=== PATIENT | male | born 1935 | race Caucasian/White ===

== ENCOUNTER → 2017-06-20 08:01 | Outpatient (CLI) | payer MEDICARE ==
[~2017-06-20] VITALS: Ht 188 cm; Wt 107.3 kg
--- NOTE | ~2017-06-20 | OP ---
PATIENT NAME: PHILIP DURHAM MEDICAL RECORD: [id number] :33 LOCATION:D.CAT ADMISSION DATE: SURGEON: FLO SAVAGE MD DATE OF OPERATION: 06/20/2017 PROCEDURES: 1. PTCA stent RCA. 2. Intravascular ultrasound. 3. Left heart catheterization. 4. Left ventriculogram. 5. Selective coronary angiography. INDICATION: Angina and coronary artery disease. PROCEDURE IN DETAIL: After informed consent was obtained and after a detailed description of risks, benefits as well as alternative therapies, the patient elected to proceed with angiogram and angioplasty. The right femoral area was prepped and draped in normal sterile fashion. Right femoral artery was cannulated via modified Seldinger technique with placement of 6-Thai sheath. All catheters exchanged through this sheath. FINDINGS: The left ventriculogram was performed in standard 30-degree KRISHNAMURTHY view, reveals good cardiac wall motion throughout all segments. Overall ejection fraction estimated at 50%. SELECTIVE CORONARY ANGIOGRAPHY: 1. Left main is with no significant angiographic disease. 2. Left anterior descending has moderate irregularities, but no flow-limiting stenosis. 3. The left circumflex has moderate irregularities, but no flow-limiting stenosis. 4. The right coronary artery has previously placed stent in the mid vessel with 70% in-stent restenosis. There is a second lesion that is 70% stenosed in the mid distal vessel. PTCA STENT OF THE RCA: The second lesion was addressed with a 3.5 x 15 mm Integrity stent. The stent balloon was used for the in-stent restenosis of the proximal lesion. Result was 0% residual stenosis. OVERALL IMPRESSION: Successful SHIELD RUNNER stent of the right coronary artery going from 70% initial stenosis times 2 to 0% residual stenosis. TRANSINT:[id number] Voice Confirmation ID: [id number] DOCUMENT ID: [id number] FLO SAVAGE MD at 1849 CC: [id number] DICTATION DATE: 06/20/17 1102 INSPECTOR BULLET SLUGS: 06/20/17 1322 REG [facility] [address] [place] [address]
--- NOTE | ~2017-06-20 | OP ---
PATIENT NAME: PHILIP DURHAM MEDICAL RECORD: [id number] :33 LOCATION:D.CAT ADMISSION DATE: SURGEON: FLO SAVAGE MD DATE OF OPERATION: 06/20/2017 PROCEDURE: Four-vessel carotid and vertebral angiography. 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 PROCEDURE IN DETAIL: After informed consent was obtained and after a detailed description of risks, benefits as well as alternative therapies, the patient elected to proceed with angiogram. The right femoral area had a preexisting sheath from coronary intervention. All catheters exchanged through this sheath. FINDINGS: There was subselection of each subclavian as well as the left carotid. LEFT SIDE: The common internal and external carotids have mild plaquing, no flow-limiting stenosis. Vertebral arteries devoid of disease. RIGHT SYSTEM: The common internal and external carotids have mild plaquing, no significant flow-limiting stenosis. Vertebral arteries devoid of disease. The right subclavian is very tortuous, calcified, but it does not appear to be flow limiting and does not appear to have any trauma from the attempted radial approach. OVERALL IMPRESSION: Minimal carotid vascular disease is present. No flow-limiting stenosis. TRANSINT:[id number] Voice Confirmation ID: [id number] DOCUMENT ID: [id number] FLO SAVAGE MD at 1849 CC: [id number] DICTATION DATE: 06/20/17 1102 ACCOUNT INSTALLATION SPECIALIST: 06/20/17 1322 REG [facility] [address] [place] [id number]
--- NOTE | ~2017-06-20 | HEMODYNAMI ---
PATIENT:PHILIP DURHAM MEDICAL RECORD: [id number] : 31 LOCATION:DMONO ADMISSION DATE: 06/20/17 Generatedon:06/20/201710:53 Patient name: PHILIP DURHAM Patient #: [id number] SSN: D OB: 1935 Date of study: 06/20/2017 Page: Of Hemodynamic Procedure Report Patient Data Patient Demographics Procedure consent was obtained First Name: PHILIP Gender: Male Last Name: HERMINIO : 1935 Middle Initial: W Age: 81 year(s) Patient #: [id number] Race: Unknown Additional ID: [id number] Contact details Address: [address] [place] [address] State: [place] City: [facility] Zip code: [address] Past Medical History Allergies: No known allergies Admission Admission Data Admission Date: 06/20/2017 Admission Time: 8:01 Admit Source: Other Lab Results Lab Result Date: 06/20/2017 Lab Result Time: 9:00 Biochemistry Name Units Result Min Max BUN mg/dl 27 --(----)-* 7 18 Creatinine mg/dl 1.3 --(---*)-- 0.6 1.3 CBC Name Units Result Min Max Hematocrit % 32.1 *-(----)-- 42 54 Hemoglobin g/dl 10.7 *-(----)-- 13.5 17.5 Procedure Procedure Types Cath Procedure Diagnostic Procedure LHC LH w/Coronaries FFR/IVUS Intra-Coronary IVUS Initial Sedation Charges Moderate Sedation up to 15 minutes PCI Procedure Coronary Stent Coronary Stent Initial Procedure Description Procedure Date Procedure Date: 06/20/2017 Procedure Start Time: 10:29 Procedure End Time: 10:52 Procedure Staff Name Function Ramos Machuca MD Performing Physician Eloy Che RT Monitor Janneth Cerrato RT Scrub Luke Win RN Nurse Procedure Data Cath Procedure Fluoroscopy Diagnostic fluoroscopy Total fluoroscopy Time: 5 time: 5 min min Diagnostic fluoroscopy Total fluoroscopy dose: dose: 1059 mGy 1059 mGy Contrast Material Contrast Material Type Amount (ml) Isovue 370 107 Entry Location Entry Primary Successful Side Size Upsize Upsize Entry Closure Wei ccessful Closure Location (Fr) 1 (Fr) 2 (Fr) Remarks Device Remarks Radial Right 6 Fr Mechanical artery Short Compression Femoral Right 6 Fr Exoseal artery Short Estimated blood loss: 10 ml Diagnostic catheters Device Type Used For End Catheter Placement DIAGNOSTIC Distant 110cm 5 Procedure Fr catheter ([id number]) MULTIPACK 3DRC 5Fr Procedure catheter MULTIPACK JL 4.0 5Fr Procedure catheter MULTIPACK Pigtail 5 Fr Procedure catheter Procedure Complications No complications Procedure Medications Medication Administration Route Dosage 0.9% NaCl I.V. 100 ml/hr Oxygen etCO2 Nasal cannula 2 l/min Heparin Flush Bag added to field 2 bags (1000units/500ml NS) Lidocaine 2% added to field 20 Versed I.V. 1 mg Fentanyl I.V. 50 mcg Radial Cocktail added to field 1 syringe (Verapomil 2mg/Nitro 400mcg/Heparin 1500units) Radial Cocktail I.A. 1 syringe (Verapomil 2mg/Nitro 400mcg/Heparin 1500units) Heparin Bolus I.V. 4000 units Integrilin (Bolus I.V. 9.5 ml 2mg/ml) Integrilin (Bolus wasted 0.5 ml 2mg/ml) Fentanyl I.V. 50 mcg Plavix P.O. 600 mg Hemodynamics Rest HGB: 10.7 (g/dl) Heart Rate: 56 (bpm) Pressure Samples Time Site Value (mmHg) Purpose Heart Use Rate(bpm) 10:36 LV 89/29,35 Snapshot 75 Snapshots Pre Cath Intra NCS Post Cath Vital Signs Time Heart Resp SPO2 etCO2 NIBP (mmHg) Rhythm Pain Sedation Rate (ipm) (%) (mmHg) Status Level (bpm) 10:23:06 61 17 100 33.7 130/71(104) A-Fib 0 (11) 10(A) , No pain 10:27:49 61 14 100 10.4 123/70(96) A-Fib 0 (11) 10(A) , No pain 10:32:21 64 14 98 20.2 101/64(88) A-Fib 0 (11) 10(A) , No pain 10:36:56 67 13 97 36.7 107/64(80) A-Fib 0 (11) 10(A) , No pain 10:41:32 61 13 98 27.7 117/66(93) A-Fib 0 (11) 10(A) , No pain 10:46:11 63 15 98 32.2 127/72(102) A-Fib 0 (11) 10(A) , No pain 10:50:53 61 11 98 0 115/66(96) A-Fib 0 (11) 10(A) , No pain Medications Time Medication Route Dose Verified Delivered Reason Not es Effectiveness by by 10:21:19 0.9% NaCl I.V. 100 Luke Luke Per physician ml/hr Audelia Win RN RN 10:21:28 Oxygen etCO2 2 l/min Luke Luke Per physician Nasal Audelia Win cannula RN RN 10:21:39 Heparin Flush added 2 bags Luke Luke used for Bag to Audelia Win procedure (1000units/500ml field RN RN NS) 10:21:52 Lidocaine 2% added 20ml Luke Luke for local to vial Lorigan Audelia anesthetic field RN RN 10:22:02 Versed I.V. 1 mg Luke Luke for sedation Audelia Win RN RN 10:22:11 Fentanyl I.V. 50 mcg Luke Luke for sedation Audelia Win RN RN 10:22:25 Radial Cocktail added 1 Luke Luke used for (Verapomil to syringe Lorfederico Win procedure 2mg/Nitro field RN RN 400mcg/Heparin 1500units) 10:29:06 Radial Cocktail I.A. 1 Luke Ramos for (Verapomil syringe Audelia Machuca MD vasodilation 2mg/Nitro RN 400mcg/Heparin 1500units) 10:37:55 Heparin Bolus I.V. 4000 Luke Luke for units Audelia Win anticoagulation RN RN 10:44:22 Integrilin I.V. 9.5 ml Luke Luke for (Bolus 2mg/ml) Audelia Win antiplatelet RN RN therapy 10:44:31 Integrilin wasted 0.5 ml Luke Luke for (Bolus 2mg/ml) Audelia Win antiplatelet RN RN therapy 10:47:47 Fentanyl I.V. 50 mcg Luke Luke for sedation Audelia Win RN RN 10:48:05 Plavix P.O. 600 mg Luke Luke for Audelia iWn antiplatelet RN RN therapy Procedure Log Time Note 10:05:13 Informed consent obtained and on chart 10:05:17 Admit Source: Other 10:05:32 Diagnostic Cath status Elective 10:05:33 Janneth Cerrato RT(R) sent for patient. Start room use. 10:05:34 Time tracking: Regular hours (M-F 7:00 - 5:00) 10:05:37 Plan of Care:Hemodynamics will remain stable., Cardiac rhythm will remain stable., Comfort level will be maintained., Respiratory function will remain adequate., Patient/ family verbilizes understanding of procedure., Procedure tolerated without complication., Recovers from procedure without complications.. 10:06:06 Lab Result : BUN 27 mg/dl 10:06:06 Lab Result : Creatinine 1.3 mg/dl 10:06:06 Lab Result : Hematocrit 32.1 % 10:06:06 Lab Result : Hemoglobin 10.7 g/dl 10:06:09 Lab results completed and on chart. 10:10:46 Patient received from Pre/Post Procedure Room to CCL 1 Alert and oriented. Tansferred to table in Supine position. 10:10:47 Warm blankets applied, and nicole hugger turned on for patient comfort. 10:10:48 Correct patient and procedure confirmed by team. 10:10:49 ECG and BP/O2 sat monitors applied to patient. 10:11:03 H&P Date Dictated: 06/07/2017 Within 30 days and on chart., H&P Addendum completed by physician on day of procedure. (MUST COMPLETE FOR ALL OUTPATIENTS). 10:11:04 Pre-procedure instructions explained to patient. 10:11:05 Pre-op teaching completed and patient verbalized understanding. 10:11:07 Family in waiting room. 10:11:08 Patient NPO since Midnight. 10:11:16 Patient allergic to No known allergies 10:11:22 Is the patient allergic to Iodine/contrast media? No. 10:18:26 Is patient on blood thinner?Yes 10:18:29 ACC The patient was administered the following blood thiners within the last 24 hours: Eliquis 10:18:32 Patient diabetic? Yes. 10:18:34 If diabetic: On Metformin? Yes 10:18:37 If on Metformin: Last Dose? 06/18/2017 10:18:43 Previous problem with sedation/anesthesia? No ? 10:18:50 Snore? Yes 10:18:51 Sleep apnea? No 10:18:52 Deviated septum? No 10:18:53 Opens mouth fully? Yes 10:18:54 Sticks out tongue? Yes 10:18:59 Airway obstruction? No ? 10:19:02 Dentures? No ? 10:19:18 Pre procedure: right dorsailis pedis pulse 2+ Normal; easily identifiable; not easily obliterated 10:19:20 Modified Eris's test Ulnar < 7 seconds 10:19:23 Patient pain scale 0/10 ?. 10:19:29 IV patent on arrival in left forearm with 0.9% NaCl at [facility]. 10:19:32 Alarms reviewed by R. N. 10:19:32 Sharps counted by scrub and verified by R.N. 10:19:36 Use device set Radial Dx or PCI 10:19:37 ACIST Syringe (82806) opened to sterile field. 10:19:37 Medline Cath Pack ([id number]) opened to sterile field. 10:19:38 Bag Decanter (2002S) opened to sterile field. 10:19:38 DIAGNOSTIC WIRE .035 260cm J wire (519876) opened to sterile field. 10:19:39 ACIST Hand Control (58384) opened to sterile field. 10:19:39 ACIST Manifold (30461) opened to sterile field. 10:19:40 Tegaderm 4 x 4 (1626W) opened to sterile field. 10:19:41 MBrace Wrist Support ([id number]) opened to sterile field. 10:19:42 SHEATH 6Fr Prelude Radial ([id number]) opened to sterile field. 10:21:19 0.9% NaCl 100 ml/hr I.V. was administered by Luke Win RN; Per physician; 10:21:28 Oxygen 2 l/min etCO2 Nasal cannula was administered by Luke Win RN; Per physician; 10:21:35 Final Timeout: patient, procedure, and site verified with staff and physician. All members of the team are in agreement. 10:21:36 Right Radial site verified by team. 10:21:39 Heparin Flush Bag (1000units/500ml NS) 2 bags added to field was administered by Luke Win RN; used for procedure; 10::44 Physical assessment completed. ASA score P 2 - A patient with mild systemic disease as per Ramos Machuca MD. 10::47 Sedation plan: IV Moderate Sedation Medication:Versed, Fentanyl 10::52 Lidocaine 2% 20ml vial added to field was administered by Luke Win RN; for local anesthetic; 10::02 Versed 1 mg I.V. was administered by Luke Win RN; for sedation; ::08 Vital chart was started 10::11 Fentanyl 50 mcg I.V. was administered by Luke Win RN; for sedation; 10::11 Rhythm: atrial fibrillation 10::25 Radial Cocktail (Verapomil 2mg/Nitro 400mcg/Heparin 1500units) 1 syringe added to field was administered by Luke Win RN; used for procedure; 10::26 Full Disclosure recording started 10::32 Baseline sample Acquired. 10:29:06 Radial Cocktail (Verapomil 2mg/Nitro 400mcg/Heparin 1500units) 1 syringe I.A. was administered by Ramos Machuca MD; for vasodilation; 10:29:12 Zero performed for pressure channel P1 10:29:34 Procedure started. 10:29:41 Local anesthetic to right radial artery with Lidocaine 2% by Ramos Machuca MD.INITIAL ACCESS ONLY 10:29:42 A 6 Fr Short sheath was inserted into the Right Radial artery 10:29:49 A DIAGNOSTIC Distant 110cm 5 Fr catheter ([id number]) was advanced over the wire and used for Procedure. 10:30:18 catheter removed. Unabel to advance. Moving to femoral approach. 10:30:27 SHEATH Prelude 6Fr 0.035 (OMQ-3G-27-035) opened to sterile field. 10:30:34 Use device set Multipack Set 10:30:36 DIAGNOSTIC Multipack 5Fr catheter set (CD5911) opened to sterile field. 10:30:43 Local anesthetic to right femoral artery with Lidocaine 2% by Ramos Machuca MD.ADDITIONAL ACCESS 10:30:57 A 6 Fr Short sheath was inserted into the Right Femoral artery 10:32:42 A MULTIPACK 3DRC 5Fr catheter was advanced over the wire and used for Procedure. 10:32:55 Left carotid angiography performed. 10:33:00 Right subclavian angiography performed 10:33:01 Right carotid angiography performed. 10:33:55 RCA angiography performed. 10:34:31 Catheter exchanged over wire. 10:34:35 A MULTIPACK JL 4.0 5Fr catheter was advanced over the wire and used for Procedure. 10:34:55 CHOICE PT Extra Support 182cm wire ([id number]) opened to sterile field. 10:34:56 INFLATOR Merit BasixCompak (FO5061) opened to sterile field. 10:35:01 LCA angiography performed. 10:35:47 Catheter exchanged over wire. 10:35:54 A MULTIPACK Pigtail 5 Fr catheter was advanced over the wire and used for Procedure. 10:36:52 EF : 50 % 10:36:53 LV gram done using KRISHNAMURTHY 10:36:56 Injector settings: Ml/sec: 10, Volume: 20, 10:36:58 Catheter removed. 10:37:53 GUIDE 6FR HS I catheter (LA6HSI) opened to sterile field. 10:37:55 Heparin Bolus 4000 units I.V. was administered by Luke Win RN; for anticoagulation; 10:38:03 6 Fr HSI guide catheter was inserted over the wire 10:38:20 Sparks Tanacross [place] IVUS Catheter (35853A) opened to sterile field. 10:38:34 CHOICE PT ES wire advanced. 10:38:59 Wire advanced across lesion. 10:39:53 Wire removed. damaged. 10:40:02 CHOICE PT Extra Support 182cm wire ([id number]) opened to sterile field. 10:40:13 CHOICE PT wire advanced. 10:40:14 Wire advanced across lesion. 10:40:19 IVUS catheter advanced over wire. 10:40:55 IVUS pass to RCA lesion performed. 10:41:37 IVUS catheter removed over wire. 10:43:58 Inflate balloon Inflation number: 1 A INTEGRITY RX 3.5 x 15 stent ([id number]) was prepped and advanced across the Dist RCA, then inflated to 17 DAGOBERTO for 0:10 (min:sec). 10:44:22 Integrilin (Bolus 2mg/ml) 9.5 ml I.V. was administered by Luke Win RN; for antiplatelet therapy; 10:44:29 Inflation number: 1 The INTEGRITY RX 3.5 x 15 stent ([id number]) was reinflated across the Mid RCA, to 17 DAGOBERTO for 0:10 (min:sec). 10:44:31 Integrilin (Bolus 2mg/ml) 0.5 ml wasted was administered by Luke Win RN; for antiplatelet therapy; 10:44:39 Stent catheter was removed intact over wire. 10:44:40 Wire removed. 10:44:40 Guide catheter removed. 10:45:47 EXOSEAL 6Fr (EX600) opened to sterile field. 10:45:58 Sheath removed intact; hemostasis achieved with Exoseal to the Right Femoral artery. 10:46:00 Procedure ended.(Physican Out) 10:46:44 TR BAND Standard ([id number]) opened to sterile field. 10:46:50 Fluoroscopy time 05.00 minutes. 10:46:53 Fluoroscopy dose: 1059 mGy 10:46:53 Flurop Dose total: 1059 10:46:57 Contrast amount:Isovue 370 107ml. 10:47:11 Sharps counted by scrub and verified by R.N. 10:47:47 Fentanyl 50 mcg I.V. was administered by Luke Win RN; for sedation; 10:48:02 Sheath removed intact; hemostasis achieved with Mechanical Compression to the Right Radial artery. 10:48:05 Plavix 600 mg P.O. was administered by Luke Win RN; for antiplatelet therapy; 10:48:05 TR band inflated with 12cc of air. 10:48:07 Insertion/operative site no bleeding no hematoma. 10:48:16 Post right femoral artery:stable, soft, clean and dry 10:48:18 Post Procedure Pulses reassessed and unchanged 10:48:19 Post-procedure physical assessment completed. ASA score P 2 - A patient with mild systemic disease as per Ramos Machuca MD. 10:48:22 Post procedure rhythm: unchanged. 10:48:25 Estimated blood loss: 10 ml 10:48:27 Post procedure instruction explained to patient.Patient verbalizes understanding. 10:48:28 Patient needs reinforcement of post procedure teaching. 10:48:41 Procedure type changed to Cath procedure, Diagnostic procedure, LHC, LHC w/Coronaries, FFR/IVUS, Intra-Coronary IVUS Initial, Sedation Charges, Moderate Sedation up to 15 minutes, PCI procedure, Coronary Stent, Coronary Stent Initial 10:51:29 Procedure and supply charges have been captured, reviewed, submitted and are correct. 10:51:32 Procedure Complication : No complications 10:51:38 Vital chart was stopped 10:51:44 See physician's report for complete and final results. 10:52:05 Report given to Pre/Post Procedure Room. 10:52:07 Patient transfered to Pre/Post Procedure Room with Stretcher. 10:52:10 Procedure ended. 10:52:10 Full Disclosure recording stopped 10:52:14 End room use (Document Last) Intervention Summary Intervention Notes Time ActionType Lesion and Equipment Action# Pressure Duration Attributes Used 10:43:58 Inflate Dist RCA INTEGRITY RX 1 17 00:10 balloon 3.5 x 15 stent ([id number]) 10:44:29 Reinflate Mid RCA INTEGRITY RX 1 17 00:10 balloon 3.5 x 15 stent ([id number]) Device Usage Item Name Manufacture Quantity Catalog Number Hospital Part Current Minimal Lot# / Charge Number Stock Stock Serial# Code ACIST Syringe Acist 1 13616 238432 162861 523159 20 (04614) Medical [employer] Inc Medline Cath Cardinal 1 [id number] 323990 29837 255574 5 Pack Health ([id number]) Bag Decanter Microtek 1 2001S 176214 45481 355707 5 (2001S) Medical Inc. DIAGNOSTIC WIRE St Satish 1 071290 446492 821972 311686 30 .035 260cm J wire (340603) ACIST Hand Acist 1 45768 043290 276632 961757 5 Control (15353) [employer] Inc ACIST Manifold Acist 1 78687 584040 324284 144100 5 (32353) Medical [employer] Inc Tegaderm 4 x 4 3M 1 1626W 506708 640729 424098 5 (1626W) MBrace Wrist Advanced 1 140-0250-00 949816 99131 465773 5 Support Vascular ([id number]) Dynamics SHEATH 6Fr Merit 1 [id number] 077995 994018 524506 5 Prelude Radial Medical ([id number]) DIAGNOSTIC Terumo 1 40-9331 168453 061610 016192 5 Distant 110cm 5 Fr catheter (072864) SHEATH Prelude Merit 1 YEG-4P-49-35 554672 3552014 339297 5 6Fr 0.035 Medical (BIM-2I-38-035) DIAGNOSTIC Cardinal 1 WI6730 704141 48074 343931 30 Multipack 5Fr Health catheter set (AK3222) MULTIPACK 3DRC Cardinal 1 852756 5 5Fr catheter Health MULTIPACK JL Cardinal 1 384593 5 4.0 5Fr Health catheter CHOICE PT Extra Morrison 2 [id number] 616413 205844 648890 5 Support 182cm Scientific wire (9485273T4) INFLATOR Merit Merit 1 AO1720 549969 190229 271874 15 BasixCompak Medical (GV7757) MULTIPACK Cardinal 1 978166 5 Pigtail 5 Fr Health catheter GUIDE 6FR HS I Medtronic 1 LA6HSI 708971 50896 899835 1 catheter (LA6HSI) Sparks Sparks 1 66705C 572675 907957 218223 8 [place] IVUS Catheter (49591X) INTEGRITY RX Medtronic 1 [id number] 289458 160662 663483 5 [id number] 3.5 x 15 stent ([id number]) EXOSEAL 6Fr Cardinal 1 EX600 068315 618999 906771 10 (EX600) Health TR BAND Terumo 1 [id number] 838166 411293 387177 40 Standard ([id number]) Signature Audit [place] Stage Time Signature Unsigned Intra-Procedure 06/20/2017 Eloy Che 10:53:09 AM RT(R) Signatures Monitor : Eloy Che RT Signature : Date : Time : [facility] [address] [place] [address]
[~2017-06-20 08:01] MED LIST: BETAPACE 80 MG80 MG PO; ELIQUIS5 MG PO; GLUCOPHAGE500 MG PO; HYZAAR 100-25 T1 TAB PO; LIPITOR80 MG PO; NORVASC10 MG PO; PACERONE200 MG PO; PLAVIX75 MG PO; PROSCAR5 MG PO
[2017-06-20 09:06] LABS: BASOPHILS 0.1 % (0-2); EOSINOPHILS 1.9 % (0-7); HEMATOCRIT 32.1 % (42.0-54.0); HEMOGLOBIN 10.7 g/dL (13.5-17.5); IMMATURE GRANULOCYTES 0.2 % (0-5); LYMPHOCYTES 13.9 % (15-50); MCH 34.2 pg (26.0-34.0); MCHC 33.3 g/dL (31.0-37.0); MCV 102.6 fL (80.0-100.0); MEAN PLATELET VOLUME 9.8 fL (7.4-10.4); NEUTROPHILS 75.9 % (40-80); PLATELET COUNT 287 10x3/uL (130-400); RBC 3.13 10x6/uL (4.20-6.10); RDW 13.8 % (11.5-14.5); WBC 9.5 10x3/uL (4.8-10.8)
[2017-06-20 09:09] VITALS: BP 133/58; Ht 188 cm; Wt 107.3 kg
[2017-06-20 09:20] LABS: ANION GAP 14.2 mmol/L (8-16); CARBON DIOXIDE 24.2 mmol/L (21.0-32.0); CREATININE - SERUM 1.3 mg/dL (0.6-1.3); POTASSIUM - SERUM 4.4 mmol/L (3.5-5.1)
== END | disposition home or self-care (01) ==
LOC: D.CATH 08:01
PROVIDERS: Internal Medicine Interventional Cardiology
DX: I25.10 Atherosclerotic heart disease of native coronary artery without angina pectoris (principal); R94.30 Abnormal result of cardiovascular function study, unspecified; R06.02 Shortness of breath; I10 Essential (primary) hypertension; Z01.812 Encounter for preprocedural laboratory examination

== ENCOUNTER 2017-07-10 09:54 | Outpatient (CLI) | payer MEDICARE ==
[~2017-07-10] VITALS: Ht 188 cm; Wt 105.5 kg
--- NOTE | ~2017-07-10 | OP ---
PATIENT NAME: PHILIP DURHAM MEDICAL RECORD: [id number] :31 LOCATION:D.CAT ADMISSION DATE: SURGEON: FLO SAVAGE MD DATE OF OPERATION: 07/10/2017 PROCEDURE: DC cardioversion. DESCRIPTION OF PROCEDURE: IV conscious sedation was performed per anesthesia. Continuous heart rate, O2 saturation, blood pressure monitoring were all undertaken, all of which remained stable. He received 1 shock at 275 joules restoring sinus rhythm. OVERALL IMPRESSION: Successful DC cardioversion from atrial fibrillation to sinus rhythm. TRANSINT:[id number] Voice Confirmation ID: [id number] DOCUMENT ID: [id number] FLO SAVAGE MD at 1403 CC: [id number] DICTATION DATE: 07/10/17 1405 TIRE MOUNTER: 07/10/17 1418 DEP CLI 07/10/17 [id number] [place] [address]
--- NOTE | ~2017-07-10 | HEMODYNAMI ---
PATIENT:PHILIP DURHAM MEDICAL RECORD: [id number] : 31 LOCATION:[facility] ADMISSION DATE: 07/10/17 Generatedon:07/10/201714:08 Patient name: PHILIP DURHAM Patient #: [id number] SSN: D OB: 1935 Date of study: 07/10/2017 Page: Of Hemodynamic Procedure Report Patient Data Patient Demographics Procedure consent was obtained First Name: PHILIP Gender: Male Last Name: HERMINIO : 1935 Middle Initial: W Age: 81 year(s) Patient #: [id number] Race: Unknown Additional ID: [id number] Contact details Address: [address] [place] [address] State: [place] City: [facility] Zip code: [address] Past Medical History Allergies: No known allergies Admission Admission Data Admission Date: 07/10/2017 Admission Time: 9:54 Lab Results Lab Result Date: 07/10/2017 Lab Result Time: 10:40 Biochemistry Name Units Result Min Max BUN mg/dl 16 --(---*)-- 7 18 Creatinine mg/dl 1.2 --(---*)-- 0.6 1.3 CBC Name Units Result Min Max Hematocrit % 33.5 *-(----)-- 42 54 Hemoglobin g/dl 11.1 *-(----)-- 13.5 17.5 Coagulation Name Units Result Min Max INR units 1.45 --(----)-* 0.85 1.17 PT sec 17.1 --(----)-* 11.6 15 Procedure Procedure Types Cath Procedure Diagnostic Procedure Cardioversion External Procedure Description Procedure Date Procedure Date: 07/10/2017 Procedure Start Time: 14:00 Procedure End Time: 14:07 Procedure Staff Name Function Ramos Machuca MD Performing Physician Marcia Jolley RT Monitor Estephania Whitney RN Nurse Eloy Che RT Human Resources Safety Manager Bill Barkley CRNA Additional personnel Procedure Data Cath Procedure Fluoroscopy Diagnostic fluoroscopy Total fluoroscopy Time: 0 time: 0 min min Diagnostic fluoroscopy Total fluoroscopy dose: 0 dose: 0 mGy mGy Contrast Material Contrast Material Type Amount (ml) Isovue 300 0 Estimated blood loss: 0 ml Procedure Complications No complications Procedure Medications Medication Administration Route Dosage Oxygen NC 2 l/min Refer to Anesthesia Notes for Sedation Medications Hemodynamics Rest Heart Rate: 89 (bpm) Snapshots Pre Cath Intra NCS Post Cath Vital Signs Time Heart Resp SPO2 etCO2 NIBP (mmHg) Rhythm Pain Sedation Rate (ipm) (%) (mmHg) Status Level (bpm) 13:48:39 96 19 98 0 165/82(105) A-Fib 0 (11) 10(A) , No pain 13:53:28 82 15 100 33 156/82(126) A-Fib 0 (11) 10(A) , No pain 13:58:19 98 16 100 33.8 159/80(105) A-Fib 0 (11) 10(A) , No pain 14:03:44 120 22 100 0 156/133(143) NSR 0 (11) 10(A) , No pain 14:05:33 102 25 98 24 119/54(110) NSR 0 (11) 10(A) , No pain Medications Time Medication Route Dose Verified Delivered Reason Notes Effectiven ess by by 13:34:35 Oxygen NC 2 Ramos Best used for l/min Sven Whitney RN procedure 13:34:40 Refer to Ramos Best Anesthesia Sven Whitney RN Notes for Sedation Medications Procedure Log Time Note 13:31:47 Time tracking: Regular hours (M-F 7:00 - 5:00) 13:31:50 Plan of Care:Hemodynamics will remain stable., Cardiac rhythm will remain stable., Comfort level will be maintained., Respiratory function will remain adequate., Patient/ family verbilizes understanding of procedure., Procedure tolerated without complication., Recovers from procedure without complications.. 13:34:35 Oxygen 2 l/min NC was administered by Estephania Whitney RN; used for procedure; 13:34:40 Refer to Anesthesia Notes for Sedation Medications was administered by Estephania Whitney RN; ; 13:36:03 Estephania Whitney RN sent for patient. Start room use. 13:44:18 Patient received from Pre/Post Procedure Room to CCL 1 Alert and oriented. Tansferred to table in Supine position. 13:44:19 Warm blankets applied, and nicole hugger turned on for patient comfort. 13:44:20 Correct patient and procedure confirmed by team. 13:44:21 Signed procedure consent form obtained from patient. 13:44:22 ECG and BP/O2 sat monitors applied to patient. 13:44:23 Full Disclosure recording started 13:47:37 Vital chart was started 13:47:48 Rhythm: atrial fibrillation 13:48:05 H&P Date Dictated: 07/04/2017 Within 30 days and on chart., H&P Addendum completed by physician on day of procedure. (MUST COMPLETE FOR ALL OUTPATIENTS). 13:48:06 Pre-procedure instructions explained to patient. 13:48:07 Pre-op teaching completed and patient verbalized understanding. 13:48:08 Family in waiting room. 13:48:09 Patient NPO since Midnight. 13:48:14 Patient allergic to No known allergies 13:48:16 Is the patient allergic to Iodine/contrast media? Yes. 13:48:17 Is the patient allergic to Iodine/contrast media? No. 13:48:18 Is patient on blood thinner?Yes 13:48:22 ACC The patient was administered the following blood thiners within the last 24 hours: ACCPlavix, Eliquis 13:48:25 Patient diabetic? Yes. 13:48:27 If diabetic: On Metformin? Yes 13:48:32 If on Metformin: Last Dose? 07/10/2017 13:48:38 Previous problem with sedation/anesthesia? No ? 13:48:40 Snore? Yes 13:48:41 Sleep apnea? No 13:48:41 Deviated septum? No 13:48:42 Opens mouth fully? Yes 13:48:43 Sticks out tongue? Yes 13:48:44 Airway obstruction? No ? 13:48:46 Dentures? No ? 13:48:48 Patient pain scale 0/10 ?. 13:49:06 IV patent on arrival in right hand with 0.9% NaCl at [facility]. 13:50:56 Bill Barkley CRNA present and monitoring patient for TIVA. 13:51:04 Quick Combo opened to sterile field. 13:51:07 Quick combo pads placed on patients chest and back. 13:52:16 Lab Result : BUN 16 mg/dl 13:52:16 Lab Result : Hemoglobin 11.1 g/dl 13:52:16 Lab Result : Creatinine 1.2 mg/dl 13:52:16 Lab Result : PT 17.1 sec 13:52:16 Lab Result : Hematocrit 33.5 % 13:52:16 Lab Result : INR 1.45 units 13:52:19 Lab results completed and on chart. 13:52:21 Alarms reviewed by Kristin Krishnan 13:54:28 Physician paged 13:55:30 Baseline sample Acquired. 13:55:38 Baseline sample Acquired. 13:58:59 Physician arrived 13:58:59 --------ALL STOP TIME OUT------ 13:59:00 Final Timeout: patient, procedure, and site verified with staff and physician. All members of the team are in agreement. 13:59:05 Physical assessment completed. ASA score P 3 - A patient with severe systemic disease as per Ramos Machuca MD. 13:59:09 Sedation plan: TIVA Medication:Propofol 14:00:32 Procedure started. 14:02:37 Defibrillator synced and charged to 275 Joules. 14:02:40 Shock delivered. 14:03:16 Patient cardioverted to sinus rhythm . 14:03:23 Procedure ended.(Physican Out) 14:03:33 Fluoroscopy time 00.00 minutes. 14:03:35 Fluoroscopy dose: 0 mGy 14:03:35 Flurop Dose total: 0 14:03:37 Contrast amount:Isovue 300 0ml. 14:04:19 Post Procedure Pulses reassessed and unchanged 14:04:23 Post-procedure physical assessment completed. ASA score P 3 - A patient with severe systemic disease as per Ramos Machuca MD. 14:04:25 Post procedure rhythm: sinus rhythm 14:05:06 Estimated blood loss: 0 ml 14:05:08 Post procedure instruction explained to patient.Patient verbalizes understanding. 14:05:09 Patient needs reinforcement of post procedure teaching. 14:06:41 Procedure and supply charges have been captured, reviewed, submitted and are correct. 14:06:43 Procedure Complication : No complications 14:07:01 See physician's report for complete and final results. 14:07:28 Report given to Pre/Post Procedure Room. 14:07:31 Patient transfered to Pre/Post Procedure Room with Stretcher. 14:07:33 Procedure ended. 14:07:33 Full Disclosure recording stopped 14:07:42 End room use (Document Last) Device Usage Item Manufacture Quantity Catalog Hospital Part Current Minimal Lot# / Name Number Charge Number Nelson keenan# Code [employer] [place] [id number] Combo Signature Audit [place] Stage Time Signature Unsigned Intra-Procedure 07/10/2017 Eloy Che 2:08:24 PM RT(R) Signatures Monitor : Marcia Signature : Counts RT Date : Time : [address] [address]
[~2017-07-10 09:54] MED LIST changes: -PACERONE200 MG PO
[2017-07-10] MEDS ORDERED: PACERONE200 MG PO (10:12)
[2017-07-10 10:27] VITALS: BP 148/59; Ht 188 cm; Wt 105.5 kg
[2017-07-10 11:02] LABS: BASOPHILS 0.3 % (0-2); HEMATOCRIT 33.5 % (42.0-54.0); HEMOGLOBIN 11.1 g/dL (13.5-17.5); IMMATURE GRANULOCYTES 0.4 % (0-5); LYMPHOCYTES 20.8 % (15-50); MCH 33.8 pg (26.0-34.0); MCHC 33.1 g/dL (31.0-37.0); MCV 102.1 fL (80.0-100.0); MEAN PLATELET VOLUME 9.5 fL (7.4-10.4); MONOCYTES 9.1 % (2-11); NEUTROPHILS 67.4 % (40-80); PLATELET COUNT 277 10x3/uL (130-400); RBC 3.28 10x6/uL (4.20-6.10); RDW 13.9 % (11.5-14.5); WBC 6.8 10x3/uL (4.8-10.8)
[2017-07-10 11:11] LABS: INR 1.45 (0.85-1.17); PROTIME 17.1 SECONDS (11.6-15.0)
[2017-07-10 11:48] LABS: ANION GAP 13.6 mmol/L (8-16); CALCIUM 9.7 mg/dL (8.5-10.1); CARBON DIOXIDE 26.6 mmol/L (21.0-32.0); CREATININE - SERUM 1.2 mg/dL (0.6-1.3); POTASSIUM - SERUM 4.2 mmol/L (3.5-5.1)
== END 2017-07-10 15:20 | disposition home or self-care (01) ==
LOC: D.CATH 09:54
PROVIDERS: Internal Medicine Interventional Cardiology
DX: I48.91 Unspecified atrial fibrillation (principal); Z01.812 Encounter for preprocedural laboratory examination